=== PATIENT | female | born 1990 ===

== ENCOUNTER 2018-07-16 07:30 | Outpatient (CLI) | payer OTHER ==
--- NOTE | 2018-07-16 09:46 | ULT ---
ULTRASOUND OB COMPLETE STANDARD: HISTORY: Anatomy. COMPARISON: None. TECHNIQUE: Real-time, myers scale, and color evaluation of the gravid uterus was performed. FINDINGS: The cervix is closed and measures 4.7 cm in length. The placenta is anterior. Single viable intrauterine with heart rate documented at 149 b.p.m. The amniotic fluid is adequate. BIOMETRY: Biparietal diameter 4.67 cm, 20 weeks 1 day Head circumference 17.5 cm, 20 weeks 1 day Cerebellum 1.96 cm, 20 weeks 1 day Average ultrasound is 20 weeks 3 days. Estimated date of delivery 11/30/2018. The estimated weight is 349 gm. The head, cerebellum, sternum, lateral ventricles, 4-chamber heart, kidneys, cord insertion, lips, no se are not seen, but the upper extremity and lower extremity, and 3-vessel cord are normal. IMPRESSION: Normal single viable intrauterine . POS: NAVEEN
== END 2018-07-16 07:31 | disposition home or self-care (01) ==
LOC: BICULT 07:30
PROVIDERS: ATTEND Family Medicine
DX: Z34.02 Encounter for supervision of normal first pregnancy, second trimester (principal); Z3A.20 20 weeks gestation of pregnancy
CPT/HCPCS: 76805